=== PATIENT | male | born 1995 | race Two or more races ===

== ENCOUNTER 2019-02-16 11:56 | Emergency (ER) | payer MEDICAID ==
[~2019-02-16] VITALS: Ht 177.8 cm; Wt 101.6 kg
[2019-02-16 12:30] VITALS: BP 124/83
[2019-02-16] MEDS ORDERED: HYDROcodone-ACET 10/325MG TAB PO ONE (12:45)
[2019-02-16] MEDS ORDERED: METHOCARBAMOL 500 MG TAB PO ONE (12:45)
== END 2019-02-16 14:40 | disposition home or self-care (01) ==
LOC: ER 11:56
DX: S30.0XXA Contusion of lower back and pelvis, initial encounter (principal); S70.02XA Contusion of left hip, initial encounter; Z90.49 Acquired absence of other specified parts of digestive tract; V86.59XA Driver of other special all-terrain or other off-road motor vehicle injured in nontraffic accident, initial encounter; Y93.89 Activity, other specified; Y99.8 Other external cause status; Y92.89 Other specified places as the place of occurrence of the external cause
CPT/HCPCS: 72100; 72170